=== PATIENT | male | born 1960 | race Caucasian/White ===

== ENCOUNTER → 2022-04-14 | Outpatient (CLI) | payer BC ==
--- NOTE | 2022-04-14 13:47 | CA ---
Stress Echo Report Sukh Mcdaniel Age: 61 Gender: M : 1960 Exam Date: 04/14/2022 09:23 Exam Location: [facility] Ht (in): 71 Wt (lb): 280 Ordering Physician: Atilio Johnson DO Referring Physician: Atilio Johnson DO Resident Assistant: Kierra Da Silva RDCS Technologist Procedure CPT: Indication: R07.89 chest pain ICD-9 Codes: Rhythm: Patient History: Cardiac Medications: ALLOPURINOL,,,,,, ASA,,,,, Medications in past 24 hours: Contrast: Lumason Stress Results Protocol: Darius Total dose(mL): 5 Exercise Duration (min:sec): [address] Depression (mm): Angina Score: Arcos Score: METS: 10.5 Resting HR: 85 Resting BP: 97 / 43 Peak HR: 161 Peak BP: 129 / 65 Max Predicted HR: 159 101 % Max Predicted HR Target HR: 135 Double Product: 04243 Stress Summary: BP Response: Reason for Termination: MAX EXERTION/TARGET HR Cardiac Symptoms: NO SYMPTOMS ECG Analysis Resting ECG: Stress ECG: Arrhythmia: Echo Analysis Resting Echo: Peak Echo Analysis: MEASUREMENTS (Male/Female) Normal Values CONCLUSIONS Good excess capacity and a Darius protocol Peak heart rate of 161 beats a minute Normal blood pressure response No ECG ms for ischemia No echocardiographic evidence for ischemia Dr. Michael Gonsalez MD (Electronically Signed) Final Date: 14 April 2022 13:46
== END | disposition home or self-care (01) ==
LOC: RADNMMAIN 08:48
PROVIDERS: ATTEND Family Medicine
DX: R07.89 Other chest pain (principal)
CPT/HCPCS: 93351; Q9950